=== PATIENT | female | born 2000 | race Two or more races ===

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

== ENCOUNTER 2021-01-25 04:48 | Emergency (ER) | payer SELFPAY ==
[~2021-01-25] VITALS: Ht 165.1 cm; Wt 62.2 kg
[~2021-01-25 04:48] MED LIST: VALA10005 PO
[2021-01-25] MEDS ORDERED: IV NORMAL SALINE 1,000ML 1,000 ML IV ONE ×2 (05:00→08:00)
--- NOTE | 2021-01-25 05:04 | EKG ---
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
[2021-01-25 05:09] LABS: BASO # 0.1 x10^3/uL (0.0-0.2); BASO % 1 % (0-3); EOS # 0.2 x10^3/uL (0.0-0.7); EOS % 2 % (0-3); HEMATOCRIT 39.7 % (36.0-47.0); HEMOGLOBIN 13.2 g/dL (12.0-15.5); LYMPH # 3.6 x10^3/uL (1.0-4.8); LYMPH % 36 % (24-48); MEAN CORPUSCULAR HEMOGLOBIN 30 pg (25-35); MEAN CORPUSCULAR HGB CONC 33 g/dL (31-37); MEAN CORPUSCULAR VOLUME 89 fL (79-100); MONO # 0.8 x10^3/uL (0.0-1.1); MONO % 8 % (0-9); NEUT # 5.3 x10^3uL (1.8-7.7); NEUT % 53 % (31-73); PLATELET COUNT 420 x10^3/uL (140-400); RED BLOOD COUNT 4.45 x10^6/uL (3.50-5.40); RED CELL DISTRIBUTION WIDTH 13.6 % (11.5-14.5); WHITE BLOOD COUNT 9.9 x10^3/uL (4.0-11.0)
--- NOTE | 2021-01-25 05:18 | PHYS DOC ---
Past History Past Medical History: No Pertinent History Additional Past Medical Histor: syncope Past Surgical History: No Surgical History Alcohol Use: None Drug Use: Marijuana Adult General Chief Complaint Chief Complaint: OVERDOSE HPI HPI Patient is a 20 year old female who presents with being found nearly unconscious and in agonal breathing by mother who called an ambulance. Upon arrival of EMS personnel she was found to be in agonal respiration, IV inserted and 1 mg of Narcan given. After which, patient woke up and was able to speak and was remorseful that she had taken half tablet that she had obtained from friend. She had a similar incident a while back and the tablet which she is being sold the Xanax is thought to be fentanyl. Patient otherwise denies taking drugs on regular basis and denies injecting or inhaling any drugs. She shows remorseful less but has no other complaint at present time. Review of Systems Review of Systems Constitutional: Denies fever or chills Eyes: Denies change in visual acuity, redness, or eye pain HENT: Denies nasal congestion or sore throat Respiratory: Denies cough or shortness of breath Cardiovascular: No additional information not addressed in HPI GI: Denies abdominal pain, nausea, vomiting, bloody stools or diarrhea : Denies dysuria or hematuria Musculoskeletal: Denies back pain or joint pain Integument: Denies rash or skin lesions Neurologic: Denies headache, focal weakness or sensory changes Endocrine: Denies polyuria or polydipsia [] All other systems were reviewed and found to be within normal limits, except as documented in this note. Current Medications Current Medications Current Medications Medications (Trade) Dose Ordered Sig/[facility] Start Time Stop Time Status Last Admin Dose Admin Sodium Chloride 1,000 ml @ 100 mls/hr 1X ONCE 01/25/21 05:00 01/25/21 14:59 01/25/21 05:09 100 MLS/HR Allergies Allergies Allergies Coded Allergies Type Severity Reaction Last Updated Verified No Known Drug Allergies 01/25/21 No Physical Exam Physical Exam Constitutional: Well developed, well nourished, no acute distress HENT: Normocephalic, atraumatic, bilateral external ears normal, oropharynx moist, no oral exudates, nose normal. Eyes: PERRLA, EOMI, conjunctiva normal, no discharge. Neck: Normal range of motion, no tenderness, supple, no stridor. Cardiovascular:Heart rate regular rhythm, no murmur Lungs & Thorax: Bilateral breath sounds clear to auscultation Abdomen: Bowel sounds normal, soft, no tenderness, no masses, no pulsatile masses. Skin: Warm, dry, no erythema, no rash. Back: No tenderness, no CVA tenderness. Extremities: No tenderness, no cyanosis, no clubbing, ROM intact, no edema. Neurologic: Alert and oriented X 3, normal motor function, normal sensory function, no focal deficits noted. Psychologic: Patient is crying and being remorseful. Denies being suicidal. Current Patient Data Vital Signs Vital Signs Date Time Temp Pulse Resp B/P (MAP) Pulse Ox O2 Delivery O2 Flow Rate FiO2 01/25/21 04:56 98.1 126 46 137/83 (101) 97 Room Air Lab Results Laboratory Tests Test 01/25/21 04:55 White Blood Count 9.9 x10^3/uL Red Blood Count 4.45 x10^6/uL Hemoglobin 13.2 g/dL Hematocrit 39.7 % Mean Corpuscular Volume 89 fL Mean Corpuscular Hemoglobin 30 pg Mean Corpuscular Hemoglobin Concent 33 g/dL Red Cell Distribution Width 13.6 % Platelet Count 420 x10^3/uL Neutrophils (%) (Auto) 53 % Lymphocytes (%) (Auto) 36 % Monocytes (%) (Auto) 8 % Eosinophils (%) (Auto) 2 % Basophils (%) (Auto) 1 % Neutrophils # (Auto) 5.3 x10^3uL Lymphocytes # (Auto) 3.6 x10^3/uL Monocytes # (Auto) 0.8 x10^3/uL Eosinophils # (Auto) 0.2 x10^3/uL Basophils # (Auto) 0.1 x10^3/uL Sodium Level 141 mmol/L Potassium Level 3.2 mmol/L Chloride Level 104 mmol/L Carbon Dioxide Level 28 mmol/L Anion Gap 9 Blood Urea Nitrogen 3 mg/dL Creatinine 0.5 mg/dL Estimated GFR (Cockcroft-Gault) 158.9 BUN/Creatinine Ratio 6 Glucose Level 148 mg/dL Calcium Level 8.3 mg/dL Total Bilirubin 0.3 mg/dL Aspartate Amino Transf (AST/SGOT) 19 U/L Alanine Aminotransferase (ALT/SGPT) 26 U/L Alkaline Phosphatase 81 U/L Total Protein 7.4 g/dL Albumin 3.9 g/dL Albumin/Globulin Ratio 1.1 Current Medications Medications (Trade) Dose Ordered Sig/Heather Route PRN Reason Start Time Stop Time Status Last Admin Dose Admin Sodium Chloride 1,000 ml @ 100 mls/hr 1X ONCE IV 01/25/21 05:00 01/25/21 14:59 01/25/21 05:09 EKG EKG Twelve-lead EKG per my interpretation shows sinus tachycardia at 109 bpm with slight right axis otherwise no acute ST segment elevations or depressions or arrhythmia noted Radiology/Procedures Radiology/Procedures [] Heart Score C/O Chest Pain: No Risk Factors: Risk Factors: DM, Current or recent (<one month) smoker, HTN, HLP, family history of CAD, obesity. Risk Scores: Risk Factors: DM, Current or recent (<one month) smoker, HTN, HLP, family history of CAD, obesity. Course & Med Decision Making Course & Med Decision Making Patient presented with having already been administered Narcan and now alert and oriented and awake. She freely admits of taking a tablet from a friend which made her go unconscious. EMS had successfully resuscitated her with 1 mg of Narcan. 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 IV fluid at 100 cc an hour of normal saline was started. Her oxygenation was 99% on room air. Laboratory studies including CBC and CMP are unremarkable. Urine studies including drug screens are pending. At the time of signout to the ED physician on shift change at 6 AM, patient remains hemodynamically stable with blood pressure 105/65 and heart rate 112 and alert and oriented x3 situation. Dragon Disclaimer Dragon Disclaimer This electronic medical record was generated, in whole or in part, using a voice recognition dictation system. Departure Departure: Referrals: PCP,BRYAN (PCP) TRISTON JOHNSON MD Jan 25, 2021 05:18
[2021-01-25 05:20] LABS: CALCIUM 8.3 mg/dL (8.5-10.1); CREATININE 0.5 mg/dL (0.6-1.0); GFR 158.9; POTASSIUM 3.2 mmol/L (3.5-5.1)
[2021-01-25 05:26] LABS: ALBUMIN 3.9 g/dL (3.4-5.0); ALBUMIN/GLOBULIN RATIO 1.1 (1.0-1.7); TOTAL BILIRUBIN 0.3 mg/dL (0.2-1.0); TOTAL PROTEIN 7.4 g/dL (6.4-8.2)
[2021-01-25] MEDS ORDERED: POTASSIUM CHLORIDE 20 MEQ TABLET.ER. PO ONE (08:45)
[2021-01-25 09:43] LABS: BARBITURATES NEG (NEG); BENZODIAZEPINES POS (NEG); CANNABINOIDS POS (NEG); COCAINE NEG (NEG); METHADONE NEG (NEG); OPIATES NEG (NEG); PHENCYCLIDINE NEG (NEG)
[2021-01-25 09:50] LABS: AMPHETAMINE/METHAMPHETAMINE NEG (NEG)
[2021-01-25 09:55] LABS: BACTERIA,URINE MANY /HPF (0-FEW); BILIRUBIN,URINE NEG (NEG); CLARITY,URINE HAZY; COLOR,URINE YELLOW; GLUCOSE,URINE NEG (NEG); NITRITE,URINE POS (NEG); RBC,URINE OCC /HPF (0-2); SQUAMOUS EPITHELIAL CELL,UR MANY /LPF; UROBILINOGEN,URINE 0.2 mg/dL (0.2 mg/dL); WBC,URINE 20-40 /HPF (0-4)
[2021-01-25] MEDS ORDERED: ONDANSETRON PF 4 MG/2 ML VIAL. IVP ONE ×2 (10:15→11:45)
[2021-01-25] MEDS ORDERED: cefTRIAXone SODIUM 1 GM VIAL ONE (10:19)
[2021-01-25] MEDS ORDERED: IV NORMAL SALINE 50ML 50 ML ONE (10:19)
[2021-01-25] MEDS ORDERED: CEPH500C PO (11:31)
[2021-01-25] MEDS ORDERED: ONDA4TAB12 PO (11:34)
[2021-01-25 11:48] VITALS: BP 98/57
== END 2021-01-25 11:45 | disposition home or self-care (01) ==
LOC: ER 04:48
DX: T50.991A Poisoning by other drugs, medicaments and biological substances, accidental (unintentional), initial encounter (principal); N39.0 Urinary tract infection, site not specified; E87.6 Hypokalemia; Y92.89 Other specified places as the place of occurrence of the external cause
CPT/HCPCS: 36415; 80053; 80307; 81001; 81025; 83735; 85025; 87086; 93005; 96361; 96365; 96375; 96376; 99284; J0696; J2405; J7030

== ENCOUNTER 2021-06-13 10:53 | Emergency (ER) | payer SELFPAY ==
[~2021-06-13] VITALS: Ht 165.1 cm; Wt 61.0 kg
[~2021-06-13 10:53] MED LIST changes: +CEPH500C PO; +ONDA4TAB12 PO
[2021-06-13 11:05] VITALS: BP 119/77
--- NOTE | 2021-06-13 12:28 | PHYS DOC ---
Past History Past Medical History: No Pertinent History Additional Past Medical Histor: syncope Past Surgical History: No Surgical History Alcohol Use: None Drug Use: Marijuana General Adult EDM: Chief Complaint: VAGINAL BLEEDING HPI: HPI: Patient is a 21-year-old female coming in for painless vaginal bleeding. Patient states that her menstrual cycle ended about 1 week ago. Patient states she had intercourse yesterday but the patient woke up to go to the bathroom she had red blood going on her legs. Denies any clots. Patient says has happened a few times in the past couple of months had postcoital bleeding. Patient has had some urinary urgency. Denies any vaginal discharge, patient does state that about a month and half ago she was treated for BV and her symptoms had improved. Denies any abdominal pain or cramping. Review of Systems: Review of Systems: All other systems within normal limits except for as noted in the HPI Allergies: Allergies: Allergies Coded Allergies Type Severity Reaction Last Updated Verified No Known Drug Allergies 01/25/21 No Physical Exam: PE: Constitutional: Well developed, well nourished, no acute distress, non-toxic appearance. [] HENT: Normocephalic, atraumatic, bilateral external ears normal, nose normal. [] Eyes: PERRLA, conjunctiva normal, no discharge. [] Neck: No rigidity, supple, no stridor. [] Cardiovascular: Regular rate and rhythm, brisk cap refill [] Lungs & Thorax: Non labored symmetric respirations, no tachypnea or respiratory distress [] Abdomen: Soft, nondistended, nontender : Normal external vagina, no lesions. Scant amount of discharge, no bleeding or lacerations noted. Skin: Warm, dry, no erythema, no rash. [] Back: Unremarkable Extremities: No deformities, range of motion grossly intact, no lower extremity edema [] Neurologic: Alert and oriented X 3, no focal deficits noted. [] Psychologic: Affect normal, judgement normal, mood normal. [] Current Patient Data: Labs: Laboratory Tests Test 06/13/21 11:31 POC Urine HCG, Qualitative hcg negative (Negative) RUN DATE: 06/13/21 [facility] *LIVE* PAGE 1 RUN TIME: 1242 Specimen Inquiry PATIENT: MORA ARMSTRONG ACCT: [id number] LOC: LEEANN U: [id number] AGE/SX: 21/F ROOM: RE06/13/[address]: JOANNE DE LA GARZA MD : 2000 BED: DIS: STATUS: REG ER TLOC: SPEC #: [id number] LENORE: 06/13/21-5 STATUS: COMP REQ #: [id number] RECD: 06/13/21-[address]: JOANNE DE LA GARZA MD SOURCE: VAGINAL ENTR: 06/13/21-[address]: IVETTE,BRYAN SPDESC: ORDERED: WET PREP COMMENTS: Has specimen been collected/obtained? Y Procedure Result WET PREP Final YEAST NONE SEEN TRICHOMONAS NONE SEEN CLUE CELLS NONE SEEN Vital Signs: Vital Signs Date Time Temp Pulse Resp B/P (MAP) Pulse Ox O2 Delivery O2 Flow Rate FiO2 06/13/21 11:05 97.8 88 18 119/77 (32) 99 EKG: EKG: [] Radiology/Procedures: Radiology/Procedures: [place] [address] IMAGING REPORT Signed PATIENT: MORA ARMSTRONG AACCOUNT: [id number] : 2000 LOCATION: ER AGE: 21 SEX: F EXAM STATUS: REG ER ORD. PHYSICIAN: JOANNE DE LA GARZA MD REASON: DUB PROCEDURE: US PELVIS W/TV EXAM: Pelvic sonogram. HISTORY: Dysfunctional uterine bleeding. TECHNIQUE: Transabdominal and transvaginal sonographic imaging of the pelvis was performed. COMPARISON: None. FINDINGS: The uterus measures 7.2 x 3.6 x 2.7 cm. The endometrial stripe measures 6.7 mm in thickness. The ovaries are normal in size and demonstrate normal blood flow. There are small physiologic bilateral ovarian follicles. IMPRESSION: Unremarkable pelvic sonogram. Electronically signed by: Real Palmer MD (06/13/2021 1:32 PM) [id number] DICTATED AND SIGNED BY: REAL PALMER MD DATE: 06/13/21 1332 CC: JOANNE DE LA GARZA MD; PCP,NO ~MTH0 0 [] Heart Score: C/O Chest Pain: No Risk Factors: Risk Factors: DM, Current or recent (<one month) smoker, HTN, HLP, family history of CAD, obesity. Risk Scores: Score 0 - 3: 2.5% MACE over next 6 weeks - Discharge Home Score 4 - 6: 20.3% MACE over next 6 weeks - Admit for Clinical Observation Score 7 - 10: 72.7% MACE over next 6 weeks - Early Invasive Strategies Course & Med Decision Making: Course & Med Decision Making Pertinent Labs and Imaging studies reviewed. (See chart for details) [] Dragon Disclaimer: Dragon Disclaimer: This electronic medical record was generated, in whole or in part, using a voice recognition dictation system. Departure Departure: Impression: Primary Impression: Vagina bleeding Disposition: HOME / SELF CARE / HOMELESS Condition: STABLE Referrals: ANN JOHN MD Patient Instructions: Uterine Bleeding, Dysfunctional JOANNE DE LA GARZA MD Jun 13, 2021 12:28
[2021-06-13 12:44] LABS: BACTERIA,URINE 0 /HPF (0-FEW); CLARITY,URINE CLEAR; COLOR,URINE YELLOW; GLUCOSE,URINE NEG (NEG); NITRITE,URINE NEG (NEG); RBC,URINE OCC /HPF (0-2); SQUAMOUS EPITHELIAL CELL,UR MANY /LPF; UROBILINOGEN,URINE 0.2 mg/dL (0.2 mg/dL); WBC,URINE 0 /HPF (0-4)
--- NOTE | 2021-06-13 13:34 | RAD ---
EXAM: Pelvic sonogram. HISTORY: Dysfunctional uterine bleeding. TECHNIQUE: Transabdominal and transvaginal sonographic imaging of the pelvis was performed. COMPARISON: None. FINDINGS: The uterus measures 7.2 x 3.6 x 2.7 cm. The endometrial stripe measures 6.7 mm in thickness . The ovaries are normal in size and demonstrate normal blood flow. There are small physiologic bilat eral ovarian follicles. IMPRESSION: Unremarkable pelvic sonogram. Electronically signed by: Zulma Mendoza MD (06/13/2021 1:32 PM) [id number]
[2021-06-14 19:22] LABS: CHLAMYDIA PROBE Negative (Negative)
== END 2021-06-13 13:45 | disposition home or self-care (01) ==
LOC: ER 11:12
DX: N93.8 Other specified abnormal uterine and vaginal bleeding (principal)
CPT/HCPCS: 76830; 76856; 81001; 81025; 87491; 87591; 99284; Q0111

== ENCOUNTER 2021-06-27 17:24 | Emergency (ER) | payer SELFPAY ==
[~2021-06-27] VITALS: Ht 165.1 cm; Wt 60.3 kg
--- NOTE | 2021-06-27 18:04 | PHYS DOC ---
Past History Past Medical History: No Pertinent History Additional Past Medical Histor: syncope Past Surgical History: No Surgical History Alcohol Use: None Drug Use: Marijuana General Adult EDM: Chief Complaint: ABDOMINAL PAIN HPI: HPI: ".. I having a lot of abdomen pain.. I am due for my peroid..It hurting down here in my pelvic and aorund my bellly button areas..." Patient is a 21 year old female who presents with above hx and complaints of para umbilical abdomen pain. Patient denies any trauma. No specific ill contacts. No history of bad food intake. Pain is within stomach intermittent and usually associated with start of menses. Patient has never had a EGD. Patient never had a colonoscopy. Patient has had history of ovarian cysts, chlamydia 2 years ago, and bacterial vaginosis recently diagnosed. Patient denies any recent travel. Denies any sick ill contacts. Denies any history of immunosuppression. Patient does report she has had some recent episodes of constipation. Patient did not get flu vaccination. Patient has not gotten COVID vaccination but did have Covid infection in the summer. 2020. No history of trauma. No history of pregnancies. Has had 4 lifetime sex partners. Denies IV drug use. Patient does smoke tobacco and uses marijuana. Review of Systems: Review of Systems: Constitutional: Denies fever or chills Eyes: Denies change in visual acuity HENT: Denies nasal congestion or sore throat Respiratory: Denies cough or shortness of breath Cardiovascular: Denies chest pain or edema GI: Complains of generalized abdominal pain,. Denies nausea, vomiting, bloody stools or diarrhea. Complaints of constipation : Denies dysuria Musculoskeletal: Denies back pain or joint pain Integument: Denies rash Neurologic: Denies headache, focal weakness or sensory changes Endocrine: Denies polyuria or polydipsia Lymphatic: Denies swollen glands Psychiatric: Denies depression or anxiety Family History: Family History: Noncontributory to presentation. Current Medications: Current Meds: See nursing for home meds Allergies: Allergies: Allergies Coded Allergies Type Severity Reaction Last Updated Verified No Known Drug Allergies 01/25/21 No Physical Exam: PE: Constitutional: Reports moderate acute distress, non-toxic appearance. [] HENT: Normocephalic, atraumatic, bilateral external ears normal, oropharynx moist, no oral exudates, nose normal. [] Eyes: PERRLA, EOMI, conjunctiva normal, no discharge. [] Neck: Normal range of motion, no tenderness, supple, no stridor. [] Cardiovascular:Heart rate regular rhythm, no murmur [] Lungs & Thorax: Bilateral breath sounds "apex of few scattered wheezes auscultation [] Abdomen: Bowel sounds normal, soft, some generalized tenderness, mild rebound the periumbilical area. Does have marked distention, no masses, no pulsatile masses. [] Skin: Warm, dry, no erythema, no rash. [] Back: No tenderness, no CVA tenderness. [] Extremities: No tenderness, no cyanosis, no clubbing, ROM intact, no edema. No true psoas sign. Neurologic: Alert and oriented X 3, normal motor function, normal sensory function, no focal deficits noted. [] Psychologic: Affect normal, judgement normal, mood normal. [] EKG: EKG: [] Radiology/Procedures: Radiology/Procedures: [][place] [id number] IMAGING REPORT Signed PATIENT: MORA ARMSTRONG AACCOUNT: [id number] : 2000 LOCATION: ER AGE: 21 SEX: F EXAM STATUS: REG ER ORD. PHYSICIAN: GUILLERMO QUIÑONES MD REASON: abd. pain,, hx prior Ovian cyst surgery, bv PROCEDURE: CT ABD PELV W/ORAL&IV CONTRAST CT ABDOMEN+PELVIS W History: Reason: abd. pain,, hx prior Ovian cyst surgery, bv / Spl. Instructions: / History: Technique: After the administration of intravenous contrast, CT imaging was performed of the abdomen and pelvis. Multiplanar images are reviewed. Exposure: One or more of the following individualized dose reduction techniques were utilized for this examination: 1. Automated exposure control 2. Adjustment of the mA and/or kV according to patient size 3. Use of iterative reconstruction technique. Comparison: None Findings: Lower chest: No consolidation or pleural effusion. Abdomen and pelvis: The liver, spleen, adrenal glands, pancreas and gallbladder are unremarkable. No biliary ductal dilatation. No renal calculus. No hydronephrosis. Normal appearance of the urinary bladder. Normal appendix. No evidence of bowel obstruction. Oral contrast opacifies to the level of the mid to distal colon. No pathologic lymphadenopathy. No ascites. Dominant right ovarian follicle measures 1.4 cm. Bones: No pathologic osseous lesions. Impression: 1. No acute abdominal or pelvic pathology. Electronically signed by: Kale Collins DO (06/27/2021 10:04 PM) [facility] DICTATED AND SIGNED BY: KALE COLLINS DO DATE: 06/27/212158 CC: GUILLERMO QUIÑONES MD; PCP,NO ~MTH0 0 [place] [address] IMAGING REPORT Signed PATIENT: MORA ARMSTRONG AACCOUNT: [id number] : 2000 LOCATION: ER AGE: 21 SEX: F EXAM STATUS: REG ER ORD. PHYSICIAN: GUILLERMO QUIÑONES MD REASON: severe pain PROCEDURE: ACUTE ABDOMEN SERIES EXAM: Frontal view of the chest, AP views of the abdomen in upright and supine positions. CLINICAL INDICATION: Reason: severe pain / Spl. Instructions: / History: COMPARISON: None. FINDINGS and IMPRESSION: The heart is not enlarged. Mediastinal and hilar contours are normal. No focal parenchymal airspace opacity. No pleural effusion or pneumothorax. No abnormal small or large bowel dilatation. Mild colonic stool content. No abnormal soft tissue mass effect. No suspicious calcifications are seen. No free intraperitoneal gas. Electronically signed by: Baldomero Hoffman MD (06/27/2021 8:17 PM) [facility] DICTATED AND SIGNED BY: BALDOMERO HOFFMAN MD DATE: 06/27/212015 CC: GUILLERMO QUIÑONES MD; PCP,NO ~MTH0 0 Heart Score: C/O Chest Pain: N/A Risk Factors: Risk Factors: DM, Current or recent (<one month) smoker, HTN, HLP, family history of CAD, obesity. Risk Scores: Score 0 - 3: 2.5% MACE over next 6 weeks - Discharge Home Score 4 - 6: 20.3% MACE over next 6 weeks - Admit for Clinical Observation Score 7 - 10: 72.7% MACE over next 6 weeks - Early Invasive Strategies Course & Med Decision Making: Course & Med Decision Making Pertinent Labs and Imaging studies reviewed. (See chart for details) Patient stay on a clear fluid diet only for the next 2 days. No solids. No milk products. Clear fluids such as grape juice, apple juice, Pedialyte, Gatorade, sweet tea, Jell-O, popsicles etc. If no improvement in pain must have reexam. Patient recommended to get follow-up with [facility] consider the diagnosis of dysmenorrhea and endometriosis since pain seems to be near or around times of menses. Patient to follow-up primary care and review ED work-up. Patient encouraged to not smoke or use marijuana. Impression: 1. Abdomen pain 2. Constipation 3. History of dysmenorrhea and suspect endometriosis based on timing of recurrent abdomen pain and menstruation 4. Tobacco marijuana use [] Dragon Disclaimer: Dragon Disclaimer: This electronic medical record was generated, in whole or in part, using a voice recognition dictation system. Departure Departure: Referrals: PCP,NO (PCP) Shantelle Disclaimer This chart was dictated in whole or in part using Voice Recognition software in a busy, high-work load, and often noisy Emergency Department environment. It may contain unintended and wholly unrecognized errors or omissions. GUILLERMO QUIÑONES MD Jun 27, 2021 18:04
[2021-06-27 18:45] LABS: U PREG PATIENT NEGATIVE (NEG)
[2021-06-27] MEDS ORDERED: MAGNESIUM HYDROXIDE 2,400 MG/30 ML ORAL.SUSP. PO ONE (18:45)
[2021-06-27] MEDS ORDERED: IV RINGERS SOLUTION,LACTATED 1,000 ML IV SCH (18:45)
[2021-06-27] MEDS ORDERED: FAMOTIDINE 20 MG/2 ML VIAL IVP ONE (18:45)
[2021-06-27] MEDS ORDERED: ONDANSETRON PF 4 MG/2 ML VIAL. IVP ONE (18:45)
[2021-06-27 18:51] LABS: BARBITURATES NEG (NEG); BENZODIAZEPINES NEG (NEG); CANNABINOIDS POS (NEG); COCAINE NEG (NEG); METHADONE NEG (NEG); OPIATES NEG (NEG); PHENCYCLIDINE NEG (NEG)
[2021-06-27 18:52] LABS: AMPHETAMINE/METHAMPHETAMINE NEG (NEG)
[2021-06-27 18:56] LABS: CLARITY,URINE HAZY; COLOR,URINE YELLOW; GLUCOSE,URINE NEG (NEG)
[2021-06-27 18:57] LABS: BACTERIA,URINE FEW /HPF (0-FEW); NITRITE,URINE NEG (NEG); RBC,URINE OCC /HPF (0-2); SQUAMOUS EPITHELIAL CELL,UR MOD /LPF; UROBILINOGEN,URINE 0.2 mg/dL (0.2 mg/dL); WBC,URINE OCC /HPF (0-4)
[2021-06-27 19:20] LABS: BASO # 0.1 x10^3/uL (0.0-0.2); BASO % 1 % (0-3); EOS % 0 % (0-3); HEMATOCRIT 42.3 % (36.0-47.0); HEMOGLOBIN 14.3 g/dL (12.0-15.5); LYMPH # 1.6 x10^3/uL (1.0-4.8); LYMPH % 19 % (24-48); MEAN CORPUSCULAR HEMOGLOBIN 30 pg (25-35); MEAN CORPUSCULAR HGB CONC 34 g/dL (31-37); MEAN CORPUSCULAR VOLUME 87 fL (79-100); MONO # 0.6 x10^3/uL (0.0-1.1); MONO % 8 % (0-9); NEUT # 6.1 x10^3uL (1.8-7.7); NEUT % 72 % (31-73); PLATELET COUNT 367 x10^3/uL (140-400); RED BLOOD COUNT 4.84 x10^6/uL (3.50-5.40); WHITE BLOOD COUNT 8.5 x10^3/uL (4.0-11.0)
[2021-06-27 19:28] LABS: CALCIUM 9.5 mg/dL (8.5-10.1); CREATININE 0.6 mg/dL (0.6-1.0); GFR 127.5; POTASSIUM 3.8 mmol/L (3.5-5.1)
[2021-06-27 19:34] LABS: ALBUMIN 5.2 g/dL (3.4-5.0); DIRECT BILIRUBIN 0.1 mg/dL (0.0-0.2); TOTAL BILIRUBIN 0.5 mg/dL (0.2-1.0); TOTAL PROTEIN 8.6 g/dL (6.4-8.2)
[2021-06-27] MEDS ORDERED: KETOROLAC 30 MG/ML VIAL. IVP ONE (19:45)
[2021-06-27] MEDS ORDERED: IOHEXOL 300 MG/ML 75 ML VIAL. IV ONE (20:15)
--- NOTE | 2021-06-27 20:20 | RAD ---
EXAM: Frontal view of the chest, AP views of the abdomen in upright and supine positions. CLINICAL INDICATION: Reason: severe pain / Spl. Instructions: / History: COMPARISON: None. FINDINGS and IMPRESSION: The heart is not enlarged. Mediastinal and hilar contours are normal. No focal parenchymal airspace o pacity. No pleural effusion or pneumothorax. No abnormal small or large bowel dilatation. Mild colonic stool content. No abnormal soft tissue ma ss effect. No suspicious calcifications are seen. No free intraperitoneal gas. Electronically signed by: Baldomero Porras MD (06/27/2021 8:17 PM) [facility]
[2021-06-27] MEDS ORDERED: IOHEXOL 300 MG/ML 50 ML VIAL. PO ONE (20:30)
--- NOTE | 2021-06-27 22:07 | RAD ---
CT ABDOMEN+PELVIS W History: Reason: abd. pain,, hx prior Ovian cyst surgery, bv / Spl. Instructions: / History: Technique: After the administration of intravenous contrast, CT imaging was performed of the abdomen and pelvis. Multiplanar images are reviewed. Exposure: One or more of the following individualized dose reduction techniques were utilized for thi s examination: 1. Automated exposure control 2. Adjustment of the mA and/or kV according to patient size 3. Use of iterative reconstruction technique. Comparison: None Findings: Lower chest: No consolidation or pleural effusion. Abdomen and pelvis: The liver, spleen, adrenal glands, pancreas and gallbladder are unremarkable. No biliary ductal dilatation. No renal calculus. No hydronephrosis. Normal appearance of the urinary steven dder. Normal appendix. No evidence of bowel obstruction. Oral contrast opacifies to the level of the mid to distal colon. No pathologic lymphadenopathy. No ascites. Dominant right ovarian follicle measures 1. 4 cm. Bones: No pathologic osseous lesions. Impression: 1. No acute abdominal or pelvic pathology. Electronically signed by: Kale Collins DO (06/27/2021 10:04 PM) [facility]
[2021-06-28 00:10] VITALS: BP 113/78
== END 2021-06-28 00:18 | disposition home or self-care (01) ==
LOC: ER 17:24
DX: K59.00 Constipation, unspecified (principal); F12.10 Cannabis abuse, uncomplicated; Z72.0 Tobacco use
CPT/HCPCS: 36415; 74022; 74177; 80048; 80076; 80307; 81001; 81025; 82150; 83690; 85025; 96361; 96374; 96375; 99285; J1885; J2405; J3490; J7120